=== PATIENT | male | born 1975 | race Two or more races ===

== ENCOUNTER 2022-08-03 11:27 | Inpatient (IN) | payer OTHER ==
[2022-08-02 23:00] VITALS: BP 130/73
[~2022-08-03] VITALS: Ht 177.8 cm; Wt 113.9 kg
--- NOTE | 2022-08-03 11:50 | NUR ---
Blood collected and sent to lab
--- NOTE | 2022-08-03 11:59 | NUR ---
Patient AOx4 able to express his concerns. Per patients request, daughter at bedside. Patient states he has been having some pain when breathing in for over 3 weeks. Discussed plan of care, patient verbalized agreement. All safety precautions followed.
[2022-08-03] MEDS ORDERED: predniSONE 20 MG TABLET PO ONE (12:00)
[2022-08-03] MEDS ORDERED: IPRATROPIUM NEB FS 0.5 MG/2.5 ML AMPUL.NEB NEB ONE (12:00)
[2022-08-03] MEDS ORDERED: ALBUTEROL FS 2.5 MG/3 ML VIAL.NEB CONTNEB ONE ×2 (12:00→15:00)
[2022-08-03] MEDS ORDERED: predniSONE 20 MG TABLET ONE (12:02)
[2022-08-03] MEDS ORDERED: ALBUTEROL FS 2.5 MG/3 ML VIAL.NEB ONE ×2 (12:05→15:19)
[2022-08-03] MEDS ORDERED: IPRATROPIUM NEB FS 0.5 MG/2.5 ML AMPUL.NEB ONE (12:05)
[2022-08-03 12:20] LABS: BASOPHILS % (AUTO) 0.3 % (0.0-2.0); EOSINOPHILS % (AUTO) 3.4 % (0.0-6.0); HEMATOCRIT 48 % (39-51); HEMOGLOBIN 15.5 g/dL (13.5-17.5); LYMPHOCYTES # (AUTO) 2.7 K/uL (0.8-4.8); LYMPHOCYTES % (AUTO) 36.6 % (20.0-44.0); MEAN CORPUSCULAR HGB CONC 32 g/dl (31.0-36.0); MEAN CORPUSCULAR VOLUME 85 fL (80-96); MONOCYTES # (AUTO) 0.7 K/uL (0.1-1.30); NEUTROPHILS # (AUTO) 3.7 K/uL (1.8-8.9); NEUTROPHILS % (AUTO) 49.7 % (43.0-81.0); PLATELET COUNT (AUTO) 299 K/uL (150-450); RED BLOOD CELL COUNT(AUTO) 5.63 MIL/uL (4.5-6.0); WHITE BLOOD COUNT (AUTO) 7.5 K/uL (4.3-11.0)
[2022-08-03 12:42] LABS: ALANINE AMINOTRANSFERASE 64 U/L (12-78); ALBUMIN 4.2 g/dL (3.4-5.0); ALKALINE PHOSPHATASE 97 U/L (46-116); ASPARTATE AMINOTRANSFERASE 37 U/L (15-37); BILIRUBIN,TOTAL 0.3 mg/dL (0.2-1.0); CALCIUM, SERUM 9.2 mg/dL (8.5-10.1); CARBON DIOXIDE 27 mmol/L (21-32); CHLORIDE 100 mmol/L (98-107); CREATININE 0.8 mg/dL (0.6-1.3); GLUCOSE 80 mg/dL (74-106); POTASSIUM 3.6 mmol/L (3.5-5.1); SODIUM SERUM 138 mmol/L (136-145); TOTAL PROTEIN, SERUM 8.1 g/dL (6.4-8.2); UREA NITROGEN, BLOOD 16 mg/dL (7-18)
[2022-08-03] MEDS ORDERED: IOHEXOL-350 100 ML VIAL IV ONE (14:11)
[2022-08-03] MEDS ORDERED: CT SWABBABLE VALVE TRANS SET 1 EA INFUS.SET MC ONE (14:11)
[2022-08-03] MEDS ORDERED: IV NS 0.9% 250 ML IV ONE (14:11)
--- NOTE | 2022-08-03 15:00 | NUR ---
Patient states he is hungry, per MD ok to eat. Food provided.
--- NOTE | 2022-08-03 16:29 | NUR ---
COVID Swab collected, sent to lab
--- NOTE | 2022-08-03 18:34 | NUR ---
CALLED [facility] [phone] NO BEDS AVAILABLE AT [facility] LOOKING AT GETTING AUTH TO STAY HERE.
[2022-08-03] MEDS ORDERED: MAG HYDROX/AL HYDROX/SIMETH 30 ML UDC ONE (18:59)
[2022-08-03] MEDS ORDERED: MAG HYDROX/AL HYDROX/SIMETH 30 ML UDC PO ONE (19:00)
[2022-08-03] MEDS ORDERED: FAMOTIDINE/PF INJ 20 MG/2 ML VIAL IV ONE ×2 (19:00)
[2022-08-03] MEDS ORDERED: ROSU5TAB13 PO (19:02)
[2022-08-03] MEDS ORDERED: EMPA10TA PO (19:02)
[2022-08-03] MEDS ORDERED: ERGO500093 PO (19:02)
--- NOTE | 2022-08-03 19:37 | NUR ---
Handoff provided to night nurse for continuity of care
--- NOTE | 2022-08-03 20:52 | NUR ---
DR STEVE ON PHONE CALL WITH DR DIOP ADMITTING
--- NOTE | 2022-08-03 21:18 | NUR ---
DAUGHTER: JEREMIAH BEAVER - CONTACT #: [phone]
--- NOTE | 2022-08-03 21:57 | NUR ---
REPORT GIVEN TO NINA SCHAEFER FOR RAMÍREZ
--- NOTE | 2022-08-03 22:43 | NUR ---
PT TRANSFERRED TO [place] [address]-2 VIA ACLS. VS ARE WNL.
[2022-08-04] MEDS ORDERED: ONDANSETRON HCL/PF 4 MG/2 ML VIAL IV PRN (00:30)
[2022-08-04] MEDS ORDERED: MORPHINE SULFATE INJ 4 MG/ML DISP.SYRIN IV PRN (00:30)
[2022-08-04] MEDS ORDERED: MORPHINE SULFATE INJ 2 MG/ML DISP.SYRIN IV PRN (00:30)
[2022-08-04] MEDS ORDERED: ACETAMINOPHEN 325 MG TABLET PO PRN (00:30)
[2022-08-04] MEDS ORDERED: NITROGLYCERIN 0.4 MG/TAB BOTTLE SL PRN (01:00)
[2022-08-04] MEDS ORDERED: IPRATROPIUM NEB FS 0.5 MG/2.5 ML AMPUL.NEB NEB PRN (01:00)
[2022-08-04] MEDS ORDERED: GUAIFENESIN/D-METHORPHAN HB 5 ML UDC PO PRN (01:00)
[2022-08-04] MEDS ORDERED: ALBUTEROL FS 2.5 MG/3 ML VIAL.NEB NEB PRN (01:00)
[2022-08-04] MEDS ORDERED: INSULIN REGULAR, HUMAN 100 UNIT/ML 3 ML VIAL SQ PRN (01:30)
[2022-08-04] MEDS ORDERED: DEXTROSE 50%-WATER 50 ML DISP.SYRIN IV PRN (01:30)
--- NOTE | 2022-08-04 04:23 | NUR ---
CLOSING NOTES: admitted 08/03 to room 326-2 from the ER DX chestpain and SOB with cough alert and orientated x4 no SOB nor Chestpain since arriving from the ER 08/030 NPO STATUS per MD Watters (hotel reservation agent for MD GUERRERO) CT neg for PE CXR normal clear Trops negative MD YUSUF ordered an ECHO for this AM
[2022-08-04] MEDS: BLOOD SUGAR DIAGNOSTIC 1 EACH STRIP IN SCH ×2 (06:08→12:49)
[2022-08-04 06:13] LABS: BASOPHILS % (AUTO) 0.3 % (0.0-2.0); HEMATOCRIT 47 % (39-51); HEMOGLOBIN 15.4 g/dL (13.5-17.5); LYMPHOCYTES % (AUTO) 26.5 % (20.0-44.0); MEAN CORPUSCULAR HGB CONC 33 g/dl (31.0-36.0); MEAN CORPUSCULAR VOLUME 83 fL (80-96); MONOCYTES # (AUTO) 0.7 K/uL (0.1-1.30); MONOCYTES % (AUTO) 9.2 % (2.0-12.0); NEUTROPHILS # (AUTO) 4.7 K/uL (1.8-8.9); PLATELET COUNT (AUTO) 290 K/uL (150-450); RED BLOOD CELL COUNT(AUTO) 5.65 MIL/uL (4.5-6.0); WHITE BLOOD COUNT (AUTO) 7.5 K/uL (4.3-11.0)
[2022-08-04 06:30] LABS: CALCIUM, SERUM 9.1 mg/dL (8.5-10.1); CARBON DIOXIDE 29 mmol/L (21-32); CHLORIDE 100 mmol/L (98-107); CREATININE 0.8 mg/dL (0.6-1.3); GLUCOSE 111 mg/dL (74-106); POTASSIUM 3.9 mmol/L (3.5-5.1); SODIUM SERUM 138 mmol/L (136-145); UREA NITROGEN, BLOOD 17 mg/dL (7-18)
[2022-08-04 06:51] LABS: CHOLESTEROL 234 mg/dL (<200); HDL CHOLESTEROL 57 mg/dL (40-60); LDL 153 mg/dL (0-99); THYROID STIMULATING HORMONE 1.464 uIU/mL (0.358-3.74); TRIGLYCERIDES 151 mg/dL (30-150)
--- NOTE | 2022-08-04 07:10 | NUR ---
ms rn received on bed, awake,alert,oriented x4,not in any form ofdistress, respirations even and unlabored,no sob noted, lungs are clear, abdomen soft,positive bowel sounds,denies pain at this time, all monitor patient.
[2022-08-04 08:21] VITALS: BP 116/77
[2022-08-04] MEDS ORDERED: ATORVASTATIN 40 MG TABLET PO SCH (09:00)
[2022-08-04] MEDS ORDERED: ENOXAPARIN SODIUM 40 MG/0.4 ML DISP.SYRIN SQ SCH (09:00)
[2022-08-04] MEDS ORDERED: Medication Not On Formulary EA (Empagliflozin (Jardiance) 10 MG) PO SCH (09:00)
[2022-08-04] MEDS ORDERED: NITROGLYCERIN 0.4 MG/TAB BOTTLE ONE (09:03)
[2022-08-04] MEDS ORDERED: METOPROLOL TARTRATE INJ 5 MG/5 ML AMPUL ONE ×4 (09:03→10:13)
[2022-08-04] MEDS ORDERED: IOHEXOL-350 100 ML VIAL IV ONE (09:03)
[2022-08-04] MEDS ORDERED: CT SWABBABLE VALVE TRANS SET 1 EA INFUS.SET MC ONE (09:03)
[2022-08-04] MEDS ORDERED: IV NS 0.9% 250 ML IV ONE (09:04)
[2022-08-04] MEDS ORDERED: PRED20TA PO (09:24)
[2022-08-04] MEDS ORDERED: FLUT1DIS INH (09:24)
[2022-08-04] MEDS ORDERED: PANT40TA2 PO (09:24)
[2022-08-04] MEDS ORDERED: AMOX-430 PO (09:24)
[2022-08-04] MEDS ORDERED: ALBU6.7H9 INH (09:24)
[2022-08-04] MEDS ORDERED: PANTOPRAZOLE 40 MG TABLET.DR PO SCH (09:30)
[2022-08-04] MEDS ORDERED: AMOX/CLAVULANATE 875 MG TABLET PO SCH (09:30)
[2022-08-04] MEDS: METOPROLOL TARTRATE INJ 5 MG/5 ML AMPUL IVP PRN ×10 (09:50→10:35)
[2022-08-04] MEDS ORDERED: NITROGLYCERIN 0.4 MG/TAB BOTTLE SL ONE (10:00)
[2022-08-04 10:35] VITALS: BP 117/59
--- NOTE | 2022-08-04 11:00 | NUR ---
ms rn ct angiogram w/ 3d image done, wa seen by dr. russell w/ order to go home after procedure.
--- NOTE | 2022-08-04 13:03 | NUR ---
ms rn alessio done w/ result, patient will be going home soon, familiy at bedside,all needs attended.
--- NOTE | 2022-08-04 13:05 | NUR ---
ms aicha bs - 180 - coverage refused by patient,no s/s of hyperglycemia.
--- NOTE | 2022-08-04 13:50 | NUR ---
ms rn went home accompanied by family, all needs attended.
[2022-08-08] MEDS ORDERED: ERGOCALCIFEROL (VITAMIN D 2) 50,000 UNIT CAPSULE PO SCH (09:00)
== END 2022-08-04 13:35 | disposition home or self-care (01) | DRG 145 ==
LOC: ER 12:26 → TELE 22:06
PROVIDERS: ADMIT Internal Medicine; ATTEND Internal Medicine
DX: J20.9 Acute bronchitis, unspecified (principal); J44.0 Chronic obstructive pulmonary disease with (acute) lower respiratory infection; J44.1 Chronic obstructive pulmonary disease with (acute) exacerbation; E11.9 Type 2 diabetes mellitus without complications; E66.9 Obesity, unspecified; I10 Essential (primary) hypertension; R06.02 Shortness of breath; Z87.891 Personal history of nicotine dependence; Z20.822 Contact with and (suspected) exposure to COVID-19; G47.33 Obstructive sleep apnea (adult) (pediatric); Z79.899 Other long term (current) drug therapy; Z68.36 Body mass index [BMI] 36.0-36.9, adult; M54.9 Dorsalgia, unspecified; E78.00 Pure hypercholesterolemia, unspecified; E78.1 Pure hyperglyceridemia; K21.9 Gastro-esophageal reflux disease without esophagitis
CPT/HCPCS: 36415; 71045-TC; 75574; 80048-TC; 80061-TC; 80076-TC; 82962-TC; 84443-TC; 84484-TC; 85025-TC; 93307-TC; C9803; G0378; J1650; J1815; J3490; J7050; Q9967